=== PATIENT | male | born 1945 | race Caucasian/White ===

== ENCOUNTER → 2017-11-27 | Outpatient (CLI) | payer MEDICARE, BC ==
[2017-11-27 20:23] LABS: ANION GAP 5 MEQ/L (8-16); BLOOD UREA NITROGEN 22 MG/DL (7-18); CALCIUM LEVEL 9.2 MG/DL (8.8-10.2); CARBON DIOXIDE LEVEL 31 MEQ/L (21-32); CHLORIDE LEVEL 107 MEQ/L (98-107); CREATININE FOR GFR 0.92 MG/DL (0.70-1.30); GLOMERULAR FILTRATION RATE > 60.0 (>42); GLUCOSE, FASTING 103 MG/DL (70-100); PSA SCREENING 0.33 NG/ML (< 4.0); SODIUM LEVEL 143 MEQ/L (136-145)
[2017-11-27 20:24] LABS: ESTIMATED AVERAGE GLUCOSE 146 MG/DL (60-110); HEMOGLOBIN A1c 6.7 %
== END ==
LOC: M WUC 17:36
DX: R73.03 Prediabetes (principal); N40.1 Benign prostatic hyperplasia with lower urinary tract symptoms
CPT/HCPCS: 83036

== ENCOUNTER → 2018-02-28 | Outpatient (REF) | payer MEDICARE, BC ==
[2018-02-28 18:00] LABS: APPEARANCE, URINE CLEAR (CLEAR); BACTERIA, URINE AUTO NEGATIVE (NEGATIVE); BILIRUBIN, URINE AUTO NEGATIVE (NEGATIVE); BLOOD, URINE BLOOD NEGATIVE (NEGATIVE); COLOR, URINE YELLOW (YELLOW); GLUCOSE, URINE (UA) AUTO NEGATIVE (NEGATIVE); KETONE, URINE AUTO NEGATIVE (NEGATIVE); LEUKOCYTE ESTERASE, URINE AUTO NEGATIVE (NEGATIVE); NITRITE, URINE AUTO NEGATIVE (NEGATIVE); PROTEIN, URINE AUTO NEGATIVE (NEGATIVE); RBC, URINE AUTO 0 /HPF (0-3); SQUAMOUS EPITHELIAL CELL UR AU 0 /HPF (0-6); UROBILINOGEN, URINE AUTO 0.2 mg/dL (0.0-2.0); WBC, URINE AUTO 1 /HPF (0-3)
== END ==
LOC: M SMT 16:47
DX: R39.15 Urgency of urination (principal)
CPT/HCPCS: 81001

== ENCOUNTER → 2019-01-23 | Outpatient (CLI) | payer MEDICARE, BC ==
[~2019-01-23] MED LIST: ACET65TA OR; CALCCHW12 OR; CIPR500T19 OR; COZA50TA18 OR; CYMB1CAP5 OR; FLAG500T OR; GLUC500T3 OR; HYDR25TA6 OR; LOPR50TA OR; MULTIVIT PO; NIAC500T OR; SAWPOW PO; VITACAP31 PO
--- NOTE | 2019-01-29 09:39 | SLEEPCENT ---
DATE OF THE STUDY: 01/23/2019 ORDERED BY: Gatito Jimenez DO Nocturnal polysomnography was performed for the titration of pressure therapy in this patient with a known history of obstructive sleep apnea syndrome, currently using bilevel pressure device of inspiratory 16 over expiratory 11. For testing a ResMed Quattro full-face mask of medium size was used. Initial bilevel pressure of 16 over 11 was applied to the circuit and the lights were extinguished. 7 hours and 53 minutes of data were reviewed. There were 236 minutes of sleep identified. Sleep latency was mildly prolonged at 48 minutes. Rapid eye movement (REM) latency was normal at 116 minutes. Sleep architecture was good with 4 REM cycles. Overall sleep efficiency was only 50.8% due to periods of wake after sleep onset. The electrocardiogram showed a sinus rhythm throughout with an average heart rate of 54 beats per minute. Rate range was 42-78. Premature ventricular contraction (PVC) were noted on occasion. Electroencephalogram (EEG) showed reasonably normal waveforms for awake and sleep. No focal events were identified. Persistence of respiratory events prompted increases in pressure therapy. Sleep was seen on bilevel pressure of 18 over 13. Despite this pressure some mild hypopneic events were appreciated. However, further increases in pressure prompted the occurrence of central apneas. There was some activity also noted in the limb leads. However, limb movement arousal index was only 2.5. IMPRESSION: Obstructive sleep apnea syndrome (G47.33). RECOMMENDATIONS: Nightly use of bilevel pressure therapy 18 inspiratory 13 expiratory.
== END ==
LOC: M SLEEP 19:49
PROVIDERS: ATTEND Internal Medicine Pulmonary Disease
DX: G47.33 Obstructive sleep apnea (adult) (pediatric) (principal)

== ENCOUNTER → 2019-04-02 | Outpatient (REF) | payer MEDICARE, BC | LOC: M SFHCPLAZ 10:21 | PROVIDERS: ATTEND Family Medicine | DX: Q85.00 Neurofibromatosis, unspecified (principal) ==

== ENCOUNTER → 2019-11-24 | Outpatient (REF) | payer MEDICARE, BC ==
[2019-11-24 17:29] LABS: ALBUMIN 3.8 GM/DL (3.2-5.2); ALT/SGPT 26 U/L (12-78); BILIRUBIN,TOTAL 0.5 MG/DL (0.2-1.0); BLOOD UREA NITROGEN 23 MG/DL (7-18); CALCIUM LEVEL 9.3 MG/DL (8.8-10.2); CARBON DIOXIDE LEVEL 31 MEQ/L (21-32); CHLORIDE LEVEL 104 MEQ/L (98-107); CHOLESTEROL LEVEL 153 MG/DL (<200); CHOLESTEROL RISK RATIO 5.275 (<5); CREATININE FOR GFR 0.92 MG/DL (0.70-1.30); GLOMERULAR FILTRATION RATE > 60.0 (>42); GLUCOSE, FASTING 93 MG/DL (70-100); HDL CHOLESTEROL 29 MG/DL (>40); LDL CHOLESTEROL 78 MG/DL (<100); NON-HDL-C 124 MG/DL; POTASSIUM SERUM 3.6 MEQ/L (3.5-5.1); SODIUM LEVEL 142 MEQ/L (136-145); TOTAL PROTEIN 7.2 GM/DL (6.4-8.2); TRIGLYCERIDES LEVEL 231 MG/DL (<150)
[2019-11-24 18:52] LABS: MALB URINE SIEMENS 24.5 MG/L
[2019-11-24 19:56] LABS: HEMOGLOBIN A1c 5.9 %
[2019-11-27 00:06] LABS: Lyme Disease IgG/IgM Antibodie <0.91 ISR (0.00-0.90); Lyme Disease IgM Ab Quantitati <0.80 index (0.00-0.79)
== END ==
LOC: M SFHCADAM 12:22
PROVIDERS: ATTEND Family Medicine
DX: I11.9 Hypertensive heart disease without heart failure (principal); R73.03 Prediabetes; E78.5 Hyperlipidemia, unspecified; Z12.5 Encounter for screening for malignant neoplasm of prostate
CPT/HCPCS: 80053; 80061; 82043; 83036; 86617; G0103; G0463

== ENCOUNTER → 2019-12-09 | Outpatient (CLI) | payer MEDICARE, BC ==
--- NOTE | 2019-12-09 16:05 | REP ---
REASON: History of osteoarthritis. There are no priors for comparison. There is asymmetric intradigital joint space narrowing particularly affecting the DIP joints of digits 2-5 inclusive. Additionally, similar changes to a lesser degree are seen involving the interphalangeal joint of the 1st digit. There is more mild appearing asymmetric intradigital joint space narrowing seen involving the proximal interphalangeal joints of digits 2-5 inclusive. There is mild lateral subluxation of the DIP joints of digits 2 and 4. Mild marginal osteophytosis is seen involving the heads of the 2nd and 3rd metacarpals. There is no periarticular osteopenia. Marginal osteophyte formation is seen involving all DIP joints and the interphalangeal joint of the 1st digit heaviest affecting the DIP joint of digits 2 through 3 inclusive. There is subtle lateral subluxation of the DIP joints of digits 2 and 4. There is no evidence of an acute fracture. There are no marginal erosions. Heavy degenerative changes are seen involving the 1st carpometacarpal joint. IMPRESSION: Advanced degenerative changes as described above. Electronically Signed by Phu Preston DO 12/09/2019 04:56 P
== END ==
LOC: M ADAMS 14:04
PROVIDERS: ATTEND Family Medicine
DX: M19.042 Primary osteoarthritis, left hand (principal); M25.742 Osteophyte, left hand
CPT/HCPCS: 73130; G0463

== ENCOUNTER → 2019-12-18 | Outpatient (REF) | payer MEDICARE, BC | LOC: M LAB REF 18:13 | PROVIDERS: ATTEND Dermatology | DX: D23.5 Other benign neoplasm of skin of trunk (principal); L82.1 Other seborrheic keratosis | CPT/HCPCS: 11102; 67810; 88305; G0463 ==

== ENCOUNTER → 2020-06-09 | Outpatient (REF) | payer MEDICARE, BC | LOC: M SFHCADAM 14:27 | PROVIDERS: ATTEND Family Medicine | DX: I11.9 Hypertensive heart disease without heart failure (principal); R73.03 Prediabetes ==

== ENCOUNTER → 2020-11-17 | Outpatient (REF) | payer MEDICARE, BC ==
[2020-11-17 16:43] LABS: HEMATOCRIT 45.5 % (42.0-52.0); HEMOGLOBIN 14.8 g/dl (13.5-17.5); MEAN CORPUSCULAR HEMOGLOBIN 28.9 pg (27.0-33.0); MEAN CORPUSCULAR HGB CONC 32.5 g/dl (32.0-36.5); MEAN CORPUSCULAR VOLUME 88.9 fl (80.0-96.0); PLATELET COUNT, AUTOMATED 209 10^3/uL (150-450); RED BLOOD COUNT 5.12 10^6/uL (4.30-6.10); WHITE BLOOD COUNT 7.7 10^3/uL (4.0-10.0)
[2020-11-17 17:09] LABS: HEMOGLOBIN A1c 5.4 %
[2020-11-17 17:13] LABS: ALBUMIN 3.9 GM/DL (3.2-5.2); ALT/SGPT 29 U/L (12-78); BILIRUBIN,TOTAL 0.6 MG/DL (0.2-1.0); BLOOD UREA NITROGEN 20 MG/DL (7-18); CALCIUM LEVEL 9.3 MG/DL (8.8-10.2); CARBON DIOXIDE LEVEL 29 MEQ/L (21-32); CHLORIDE LEVEL 102 MEQ/L (98-107); CHOLESTEROL LEVEL 158 MG/DL (<200); CREATININE FOR GFR 0.86 MG/DL (0.70-1.30); FREE T4 0.89 NG/DL (0.76-1.46); GLOMERULAR FILTRATION RATE > 60.0 (>42); GLUCOSE, FASTING 101 MG/DL (70-100); HDL CHOLESTEROL 37 MG/DL (>40); LDL CHOLESTEROL 66 MG/DL (<100); NON-HDL-C 121 MG/DL; POTASSIUM SERUM 3.5 MEQ/L (3.5-5.1); SODIUM LEVEL 138 MEQ/L (136-145); TOTAL PROTEIN 7.1 GM/DL (6.4-8.2); TRIGLYCERIDES LEVEL 273 MG/DL (<150)
[2020-11-17 17:22] LABS: VITAMIN B12 LEVEL 472 PG/ML (247-911)
== END ==
LOC: M SFHCADAM 14:04
PROVIDERS: ATTEND Family Medicine
DX: I48.0 Paroxysmal atrial fibrillation (principal); I11.9 Hypertensive heart disease without heart failure; E78.5 Hyperlipidemia, unspecified; R73.03 Prediabetes; G62.9 Polyneuropathy, unspecified
CPT/HCPCS: 80053; 80061; 82607; 82746; 83036; 84439; 84443; 85027; G0463

== ENCOUNTER 2021-03-09 12:53 | Emergency (ER) | payer MEDICARE, BC ==
[~2021-03-09] VITALS: Ht 172.7 cm; Wt 122.4 kg
[2021-03-09] MEDS ORDERED: AMLO1TAB24 (13:13)
[2021-03-09] MEDS ORDERED: DOXA1TAB40 (13:13)
--- NOTE | 2021-03-09 16:54 | REP ---
INDICATION: pulled off compression sock and pain since COMPARISON: None. TECHNIQUE: Three views left shoulder. FINDINGS: There is no evidence of acute fracture, dislocation, or intrinsic bone disease.Mild narrowing and spurring at both the acromioclavicular and glenohumeral joints. IMPRESSION: No fracture or dislocation. Mild degenerative changes. <Electronically signed by Sameer Epperson > 03/09/21 [id number]
--- NOTE | 2021-03-09 16:55 | REP ---
INDICATION: pulled off compression sock and pain since into chest. COMPARISON: 07/21/2015. TECHNIQUE: Single portable AP view of the chest was performed. FINDINGS: There is no acute infiltrate or pulmonary edema. Lungs are clear. The heart is not significantly enlarged. The mediastinal silhouette is unremarkable. The visualized osseous structures are intact. IMPRESSION: No acute pulmonary disease. <Electronically signed by Sameer Epperson > 03/09/21 [id number]
[2021-03-09] MEDS: GABAPENTIN 300 MG CAP PO ONE (16:56)
[2021-03-09] MEDS: valACYclovir HCL 500 MG TAB PO ONE (16:57)
[2021-03-09 17:07] LABS: ALBUMIN 3.7 GM/DL (3.2-5.2); ALT/SGPT 26 U/L (12-78); BILIRUBIN,DIRECT 0.2 MG/DL (0.0-0.2); BILIRUBIN,TOTAL 0.7 MG/DL (0.2-1.0); CK-MB VALUE MASS 1.7 NG/ML (<3.6); CPK CREATINE PHOSPHOKINASE 45 U/L (39-308); LIPASE 106 U/L (73-393); MB/CK RELATIVE INDEX 3.78 (< OR =4); TOTAL PROTEIN 6.7 GM/DL (6.4-8.2); TROPONIN I < 0.02 NG/ML (< 0.10)
[2021-03-09 17:16] LABS: BASO # 0.1 10^3/uL (0.0-0.2); BASO % 1.2 % (0.0-1.0); EOS # 0.2 10^3/uL (0.0-0.5); EOS % 2.2 % (0.0-3.0); HEMATOCRIT 43.7 % (42.0-52.0); HEMOGLOBIN 14.8 g/dl (13.5-17.5); LYMPH # 1.5 10^3/uL (1.5-5.0); LYMPH % 20.8 % (24.0-44.0); MEAN CORPUSCULAR HEMOGLOBIN 29.7 pg (27.0-33.0); MEAN CORPUSCULAR HGB CONC 33.9 g/dl (32.0-36.5); MEAN CORPUSCULAR VOLUME 87.8 fl (80.0-96.0); MONO # 0.7 10^3/uL (0.0-0.8); MONO % 9.5 % (2.0-8.0); NEUTROPHILS # 4.9 10^3/uL (1.5-8.5); NEUTROPHILS % 65.9 % (36.0-66.0); PLATELET COUNT, AUTOMATED 208 10^3/uL (150-450); RED BLOOD COUNT 4.98 10^6/uL (4.30-6.10); WHITE BLOOD COUNT 7.4 10^3/uL (4.0-10.0)
[2021-03-09] MEDS ORDERED: VALA1TAB5 PO (17:47)
[2021-03-09] MEDS ORDERED: NEUR300C PO (17:47)
[2021-03-09 18:14] VITALS: BP 139/72
--- NOTE | 2021-03-10 11:38 | ECGEPIP ---
[facility] - ED Test Date: 2021-03-09 Pat Name: JOSSELINE PATE Department: Room: - Gender: Male [employer] Sol[employer]: del : 1945 Requested By: BRAD Schuster PA-C Order Number: [id number] Reading MD: Ankita Azar Measurements Intervals [place] Rate: 56 P: -8 VT: 180 QRS: 12 QRSD: 94 T: 27 QT: 456 QTc: 440 Interpretive Statements Sinus bradycardia NSTTW abnormalities No prior Electronically Signed on 03-10-2021 11:37:39 EDT by Ankita Azar
== END 2021-03-09 18:15 | disposition home or self-care (01) ==
LOC: M ED 12:53
DX: B02.8 Zoster with other complications (principal); M25.512 Pain in left shoulder; R94.31 Abnormal electrocardiogram [ECG] [EKG]; E11.9 Type 2 diabetes mellitus without complications; I10 Essential (primary) hypertension; G57.93 Unspecified mononeuropathy of bilateral lower limbs; Z79.899 Other long term (current) drug therapy; Z90.49 Acquired absence of other specified parts of digestive tract; Z88.0 Allergy status to penicillin

== ENCOUNTER → 2021-08-02 | Outpatient (REF) | payer MEDICARE, BC ==
[~2021-08-02] MED LIST changes: +AMLO1TAB24; +DOXA1TAB40; +NEUR300C PO; +VALA1TAB5 PO
== END ==
LOC: M LAB REF 17:19
PROVIDERS: ATTEND Nurse Practitioner Family
DX: D23.0 Other benign neoplasm of skin of lip (principal)

== ENCOUNTER 2021-10-16 15:42 | Outpatient (CLI) | payer MEDICARE, BC ==
[~2021-10-16 15:42] MED LIST changes: +ALBUTEROL 90 MCG/ACT 8GM HFA INHALER INH PRN; +ALBUTEROL SULFATE 2.5 MG/0.5 ML INH NEB SOLN INH PRN; +EPINEPHrine INJ 1 MG/ML 1ML AMP IM PRN; +diphenhydrAMINE 50MG/ML VIAL (J1200) IV PRN; +methylPREDNISolone 125MG 2ML VIAL IV PRN
[2021-10-16 16:55] VITALS: BP 162/73
[2021-10-16] MEDS ORDERED: BEBTELOVIMAB 175MG 2ML VIAL (EUA) IV ONE (17:00)
[2021-10-16 17:55] VITALS: BP 171/80
== END 2021-10-16 18:17 | disposition home or self-care (01) ==
LOC: M OPCLI4PR 15:42 → M 4MAIN 15:54 → M OPCLI4PR 18:17
PROVIDERS: ATTEND Physician Assistant Medical
DX: U07.1 COVID-19 (principal)

== ENCOUNTER 2022-06-14 00:58 | Emergency (ER) | payer MEDICARE, BC ==
[~2022-06-14] VITALS: Ht 175.3 cm; Wt 120.5 kg
[~2022-06-14 00:58] MED LIST changes: -ALBUTEROL 90 MCG/ACT 8GM HFA INHALER INH PRN; -ALBUTEROL SULFATE 2.5 MG/0.5 ML INH NEB SOLN INH PRN; -EPINEPHrine INJ 1 MG/ML 1ML AMP IM PRN; -diphenhydrAMINE 50MG/ML VIAL (J1200) IV PRN; -methylPREDNISolone 125MG 2ML VIAL IV PRN
[2022-06-14] MEDS ORDERED: ACETAMINOPHEN 500 MG TAB PO ONE ×2 (01:10→11:00)
[2022-06-14] MEDS ORDERED: VENTAER INH (11:11)
[2022-06-14] MEDS ORDERED: PRED20TA PO (11:15)
[2022-06-14 11:26] VITALS: BP 128/61
== END 2022-06-14 11:45 | disposition home or self-care (01) ==
LOC: M ED 00:58
DX: J09.X2 Influenza due to identified novel influenza A virus with other respiratory manifestations (principal); M79.10 Myalgia, unspecified site; R32 Unspecified urinary incontinence; I10 Essential (primary) hypertension; Z87.891 Personal history of nicotine dependence; Z88.0 Allergy status to penicillin; Z88.8 Allergy status to other drugs, medicaments and biological substances; Z79.899 Other long term (current) drug therapy

== ENCOUNTER → 2022-09-06 | Outpatient (REF) | payer MEDICARE, BC ==
[~2022-09-06] MED LIST changes: +PRED20TA PO; +VENTAER INH
[2022-09-06 18:01] LABS: HEMATOCRIT 43.8 % (42.0-52.0); HEMOGLOBIN 14.6 g/dl (13.5-17.5); MEAN CORPUSCULAR HGB CONC 33.3 g/dl (32.0-36.5); MEAN CORPUSCULAR VOLUME 89.9 fl (80.0-96.0); PLATELET COUNT, AUTOMATED 210 10^3/uL (150-450); RED BLOOD COUNT 4.87 10^6/uL (4.30-6.10); WHITE BLOOD COUNT 7.6 10^3/uL (4.0-10.0)
[2022-09-06 18:12] LABS: HEMOGLOBIN A1c 5.4 % (4.0-6.0)
[2022-09-06 18:32] LABS: ALBUMIN 3.9 G/DL (3.2-5.2); ALKALINE PHOSPHATASE 86 U/L (46-116); ALT/SGPT 30 U/L (7.0-40); AST/SGOT 16 U/L (<34); BILIRUBIN,TOTAL 0.7 MG/DL (0.3-1.2); BLOOD UREA NITROGEN 25 MG/DL (9-23); CALCIUM LEVEL 9.8 MG/DL (8.3-10.6); CARBON DIOXIDE LEVEL 31 MMOL/L (20-31); CHLORIDE LEVEL 104 MMOL/L (98-107); CHOLESTEROL LEVEL 158 MG/DL (<200); CHOLESTEROL RISK RATIO 4.01 (<5); CREATININE FOR GFR 1.02 MG/DL (0.70-1.30); GLOMERULAR FILTRATION RATE > 60.0 (>42); GLUCOSE, FASTING 70 MG/DL (74-106); HDL CHOLESTEROL 39.4 MG/DL (>40); LDL CHOLESTEROL 82.8 MG/DL (<100); NON-HDL-C 119 MG/DL; POTASSIUM SERUM 3.8 MMOL/L (3.5-5.1); SODIUM LEVEL 140 MMOL/L (136-145); TOTAL PROTEIN 6.9 G/DL (5.7-8.2); TRIGLYCERIDES LEVEL 179 MG/DL (<150)
== END ==
LOC: M SFHCADAM 14:33
PROVIDERS: ATTEND Family Medicine
DX: R73.03 Prediabetes (principal); E78.5 Hyperlipidemia, unspecified; I48.0 Paroxysmal atrial fibrillation

== ENCOUNTER → 2023-01-04 | Outpatient (CLI) | payer MEDICARE, BC | LOC: M RAD 11:14 | PROVIDERS: ATTEND Surgery Vascular Surgery | DX: M48.00 Spinal stenosis, site unspecified (principal) ==

== ENCOUNTER → 2024-01-28 | Outpatient (REF) | payer MEDICARE, BC ==
[2024-01-28 13:22] LABS: HEMATOCRIT 43.8 % (42.0-52.0); HEMOGLOBIN 14.4 g/dl (13.5-17.5); MEAN CORPUSCULAR HEMOGLOBIN 29.6 pg (27.0-33.0); MEAN CORPUSCULAR HGB CONC 32.9 g/dl (32.0-36.5); MEAN CORPUSCULAR VOLUME 89.9 fl (80.0-96.0); PLATELET COUNT, AUTOMATED 244 10^3/uL (150-450); RED BLOOD COUNT 4.87 10^6/uL (4.30-6.10); WHITE BLOOD COUNT 7.5 10^3/uL (4.0-10.0)
[2024-01-28 13:32] LABS: HEMOGLOBIN A1c 5.2 % (4.0-6.0)
[2024-01-28 13:44] LABS: ALBUMIN 3.8 G/DL (3.2-5.2); ALKALINE PHOSPHATASE 104 U/L (46-116); ALT/SGPT 41 U/L (7.0-40); AST/SGOT 11 U/L (<34); BILIRUBIN,TOTAL 0.8 MG/DL (0.3-1.2); BLOOD UREA NITROGEN 18 MG/DL (9-23); CALCIUM LEVEL 9.8 MG/DL (8.3-10.6); CARBON DIOXIDE LEVEL 30 MMOL/L (20-31); CHLORIDE LEVEL 107 MMOL/L (98-107); CREATININE FOR GFR 0.97 MG/DL (0.70-1.30); GLOMERULAR FILTRATION RATE > 60.0 (>42); GLUCOSE, FASTING 91 MG/DL (74-106); POTASSIUM SERUM 4.1 MMOL/L (3.5-5.1); SODIUM LEVEL 142 MMOL/L (136-145); TOTAL PROTEIN 6.6 G/DL (5.7-8.2)
[2024-01-28 13:48] LABS: CHOLESTEROL RISK RATIO 3.73 (<5); HDL CHOLESTEROL 38.6 MG/DL (>40); LDL CHOLESTEROL 86.4 MG/DL (<100); NON-HDL-C 105.4 MG/DL
[2024-01-28 13:49] LABS: FREE T4 0.99 NG/DL (0.89-1.76)
[2024-01-28 13:50] LABS: THYROID STIMULATING HORMONE 2.042 uIU/ML (0.55-4.78)
== END ==
LOC: M SFHCADAM 10:06
PROVIDERS: ATTEND Family Medicine
DX: K57.92 Diverticulitis of intestine, part unspecified, without perforation or abscess without bleeding (principal); R73.03 Prediabetes; I48.0 Paroxysmal atrial fibrillation; E78.5 Hyperlipidemia, unspecified

== ENCOUNTER → 2024-09-02 | Outpatient (REF) | payer MEDICARE, BC | LOC: M SFHCDERM 13:11 | PROVIDERS: ATTEND Physician Assistant | DX: L82.1 Other seborrheic keratosis (principal) ==